=== PATIENT | male | born 1970 | race Caucasian/White ===

== ENCOUNTER → 2020-09-20 13:00 | Outpatient (CLI) | payer MEDICARE, MEDICAID, SELFPAY ==
--- NOTE | 2020-09-20 13:04 | DI.CT.S_ITS ---
PROCEDURE: CT UE RT WO CON INDICATIONS: Displaced fracture of of fifth metacarpal bone TECHNIQUE: Noncontrast 1 mm axial sections acquired through the carpal bones, with coronal and sagittal reformats. COMPARISON: [facility], CR, XR WRIST 3+ VIEWS RIGHT, 01/04/2020, 8:42. [facility], CT, CT UPPER EXTREMITY RIGHT WITHOUT CONTRAST, 12/05/2019, 7:48. [facility] [place], CR, XR WRIST 3+ VIEWS RIGHT, 09/10/2020, 14:15. [facility] [place], CR, XR HAND 3+ VIEWS RIGHT, 09/10/2020, 14:16. FINDINGS: Image quality: Excellent. Bones: Compared to prior studies, again noted is a comminuted and displaced fracture involving dorsal aspect of distal hamate with multiple dorsally and distally displaced fragments with up to 3 mm diastasis and well corticated margin along the fracture site suggestive of nonunion. No evidence of osteonecrosis is seen. There is slight dorsal subluxation at 4th and 5th CMC joints. Minimally impacted subacute appearing fracture involving 5th metacarpal base/proximal shaft with surrounding callus formation is seen and up to 1.8 mm diastasis at fracture site. No other fracture or dislocation is seen. No suspicious bony lesion. Soft tissues: Mild soft tissue swelling over dorsal and ulnar aspect of 4th and 5th CMC joints are seen. No abnormal soft tissue calcifications. No full-thickness extensor or flexor tendon rupture. IMPRESSION: 1. 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 2. Slight dorsal subluxation at 4th and 5th CMC joints. Subacute appearing comminuted and minimally impacted fracture involving proximal shaft of 5th metacarpal bone with surrounding callus formation. 3. No other fracture or dislocation is seen. No abnormal soft tissue calcifications. Dictated by: Winston Esquivel M.D. on 09/20/2020 at 13:58 Approved by: Winston Esquivel M.D. on 09/20/2020 at 14:08
== END ==
PROVIDERS: PCP Orthopaedic Surgery; Referring Provider Orthopaedic Surgery; Visit Provider Orthopaedic Surgery
DX: S62.316P Displaced fracture of base of fifth metacarpal bone, right hand, subsequent encounter for fracture with malunion (principal); S62.326P Displaced fracture of shaft of fifth metacarpal bone, right hand, subsequent encounter for fracture with malunion; X58.XXXD Exposure to other specified factors, subsequent encounter
CPT/HCPCS: 73200

== ENCOUNTER 2020-11-19 11:58 | Emergency (ER) | payer OTHER, MEDICAID, SELFPAY ==
[2020-11-19 12:02] VITALS: BP 143/94; PULSE 98; RESP 14; TEMP 36.3; O2SAT 99
--- NOTE | 2020-11-19 12:05 | DI.RAD.S_ITS ---
PROCEDURE: XR WRIST LT MIN 3V INDICATIONS: fall onto bilat arms. Right worse than left TECHNIQUE: 4 views of the wrist were acquired. COMPARISON: None. FINDINGS: Bones: No fractures or dislocations. No suspicious bony lesions. Scaphoid view: No scaphoid fracture. Soft tissues: No suspicious soft tissue calcifications. IMPRESSION: No visualized acute fracture or dislocation. However, if clinical concern and/or pain persist, short interval imaging followup in 7-10 days is recommended, as occult injury cannot be definitively excluded. Dictated by: Angeli Haynes M.D. on 11/19/2020 at 13:17 Approved by: Angeli Haynes M.D. on 11/19/2020 at 13:18
--- NOTE | 2020-11-19 12:06 | DI.RAD.S_ITS ---
PROCEDURE: XR ELBOW RT MIN 3V INDICATIONS: fall, right worse than left. TECHNIQUE: 3 views of the elbow were acquired. COMPARISON: None. FINDINGS: Bones: No fractures or dislocations. No suspicious bony lesions. Soft tissues: Minimal elbow joint effusion. No suspicious soft tissue calcifications. IMPRESSION: Minimal effusion. No visualized acute fracture or dislocation. However, if clinical concern and/or pain persist, short interval imaging followup in 7-10 days is recommended, as occult injury cannot be definitively excluded. Dictated by: Angeli Haynes M.D. on 11/19/2020 at 13:16 Approved by: Angeli Haynes M.D. on 11/19/2020 at 13:16
--- NOTE | 2020-11-19 12:06 | DI.RAD.S_ITS ---
PROCEDURE: XR WRIST RT MIN 3V INDICATIONS: fall, right worse than left. TECHNIQUE: 4 views of the wrist were acquired. COMPARISON: None. FINDINGS: Bones: No fractures or dislocations. No suspicious bony lesions. Scaphoid view: No visualized fracture. Soft tissues: No suspicious soft tissue calcifications. IMPRESSION: No visualized acute fracture or dislocation. However, if clinical concern and/or pain persist, short interval imaging followup in 7-10 days is recommended, as occult injury cannot be definitively excluded. Dictated by: Angeli Haynes M.D. on 11/19/2020 at 13:18 Approved by: Angeli Haynes M.D. on 11/19/2020 at 13:19
--- NOTE | 2020-11-19 12:06 | DI.RAD.S_ITS ---
PROCEDURE: XR FOREARM RT 2V INDICATIONS: fall, right worse than left. TECHNIQUE: 2 views of the forearm were acquired. COMPARISON: [facility], CR, XR WRIST LT MIN 3V, 11/19/2020, 12:10. [facility], CR, XR ELBOW RT MIN 3V, 11/19/2020, 12:10. [facility], CR, XR WRIST RT MIN 3V, 11/19/2020, 12:10. FINDINGS: Bones: No fractures or dislocations. No suspicious bony lesions. Soft tissues: No suspicious soft tissue calcifications or masses. IMPRESSION: No visualized acute fracture or dislocation. However, if clinical concern and/or pain persist, short interval imaging followup in 7-10 days is recommended, as occult injury cannot be definitively excluded. Dictated by: Angeli Haynes M.D. on 11/19/2020 at 13:16 Approved by: Angeli Haynes M.D. on 11/19/2020 at 13:17
--- NOTE | 2020-11-19 15:04 | DI.RAD.S_ITS ---
PROCEDURE: XR HAND LT MIN 3V INDICATIONS: Fall TECHNIQUE: 3 views of the hand(s) acquired. COMPARISON: [facility], CR, XR WRIST LT MIN 3V, 11/19/2020, 12:10. FINDINGS: Bones: No fractures or dislocations. Carpal bones are normally aligned. No suspicious bony lesions. Soft tissues: No suspicious soft tissue calcifications. IMPRESSION: No acute osseous abnormality. Consider follow-up radiographs in 10-14 days. Dictated by: Tye Johnson M.D. on 11/19/2020 at 14:54 Approved by: Tye Johnson M.D. on 11/19/2020 at 14:56
--- NOTE | 2020-11-19 15:05 | DI.RAD.S_ITS ---
PROCEDURE: XR HAND RT MIN 3V INDICATIONS: fall TECHNIQUE: 3 views of the hand(s) acquired. COMPARISON: [facility], CR, XR HAND LT MIN 3V, 11/19/2020, 15:13. FINDINGS: Bones: There is a mildly angulated fracture at the base the 5th metacarpal. Soft tissues: No suspicious soft tissue calcifications. IMPRESSION: Mildly angulated 5th metacarpal base fracture. Dictated by: Angeli Haynes M.D. on 11/19/2020 at 15:54 Approved by: Angeli Haynes M.D. on 11/19/2020 at 15:55
--- NOTE | 2020-11-19 15:52 | PC.NURSE ---
Patient left AMA, unhappy with wait times and nursing/xray assessments. explains that patient is under stress and suffers from PTSD/bipolar disorders. Provider aware.
--- NOTE | 2020-12-22 21:31 | ED.UPPEXIN ---
HPI - Extremity Injury (Upper) <Tracey Owens PA-C - Last Filed: 12/22/20 21:32> General Chief Complaint: Extremity Injury, Upper Stated Complaint: fall, right and left wrist pain Time Seen by Provider: 11/19/20 14:46 Source: patient Mode of arrival: Ambulatory Limitations: no limitations Related Data Allergies Allergy/AdvReac Type Severity Reaction Status Date / Time Iodinated Contrast Media Allergy Severe Anaphylaxis Verified 11/19/20 12:05 Patient History <Tracey Owens PA-C - Last Filed: 12/22/20 21:32> Social History Smoking Status: Current every day smoker Smoking Status: Current every day smoker alcohol intake frequency: 0-2 drinks per day Substance Use Type: marijuana Exam <Tracey Owens PA-C - Last Filed: 12/22/20 21:32> Initial Vital Signs Initial Vital Signs: Vital Signs Temperature 97.4 F L 11/19/20 12:02 Pulse Rate 98 H 11/19/20 12:02 Respiratory Rate 14 11/19/20 12:02 Blood Pressure 143/94 H 11/19/20 12:02 Pulse Oximetry 99 11/19/20 12:02 <Pamela Barreto DO - Last Filed: 01/01/21 07:14> Initial Vital Signs Initial Vital Signs: Vital Signs Temperature 97.4 F L 11/19/20 12:02 Pulse Rate 98 H 11/19/20 12:02 Respiratory Rate 14 11/19/20 12:02 Blood Pressure 143/94 H 11/19/20 12:02 Pulse Oximetry 99 11/19/20 12:02 Discharge Plan Departure Patient Disposition: Left Against Medical Advice Clinical Impression: Left against medical advice Activity Restrictions/Additional Instructions: You were being evaluated for bilateral hand injuries. You were advised to stay for x-rays. You declined to get hand x-rays, and of leaving against medical advice. Please return to the ED if you experience worsening symptoms, numbness, tingling, weakness. Stand Alone Forms: Against Medical Advice
== END 2020-11-19 15:55 | disposition left against medical advice (07) ==
PROVIDERS: Emergency Provider Student in an Organized Health Care Education/Training Program; PCP Orthopaedic Surgery
DX: S69.92XA Unspecified injury of left wrist, hand and finger(s), initial encounter (principal); S69.91XA Unspecified injury of right wrist, hand and finger(s), initial encounter; S59.901A Unspecified injury of right elbow, initial encounter; W19.XXXA Unspecified fall, initial encounter
CPT/HCPCS: 73080; 73090; 73110; 73130; 99283